=== PATIENT | female | born 1940 | race Two or more races ===

== ENCOUNTER 2024-12-01 09:25 | Inpatient (IN) | payer MEDICAID, OTHER ==
[~2024-12-01] VITALS: Ht 154.9 cm; Wt 57.8 kg
--- NOTE | 2024-12-01 10:18 | DVH ---
CHEST RADIOGRAPH Indication: left face numbness Technique: Single frontal view of the chest was obtained COMPARISON: None FINDINGS: No pneumothorax, pulmonary edema, or consolidative infiltrates. The heart is upper limits of normal in size. The aortic arch is calcific. 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 IMPRESSION: 1. No acute intrathoracic process.
--- NOTE | 2024-12-01 10:26 | DVH ---
EXAM: CT HEAD WITHOUT CONTRAST INDICATION: left face numbness TECHNIQUE: CT of the head without intravenous contrast. Radiation Dose : 1. Head: CT Dose: CTDI volume is 50.52 mGy. Dose-length product is 810.09 mGy*cm The dose indicators for CT are the volume Computed Tomography (CT) Dose Index (CTDIvol) and the Dose Length Product (DLP), and are measured in units of mGy and mGy-cm, respectively. These indicators are not patient dose, but values generated from the CT scanner acquisition factors. The report includes radiation exposure data for exposures received during this examination. COMPARISON: None FINDINGS: No intracranial hemorrhage, mass, midline shift, hydrocephalus, or evidence of acute large vessel inf arct. There is mild global brain atrophy. There is moderate to severe decreased attenuation in the periventricular and by cerebral white matter. The mastoid air cells and middle ear spaces are clear. There is a mucous retention cyst in the right ethmoid sinus. There are postoperative changes of amalia ateral cataract extraction surgery. No cranial fracture or scalp edema. IMPRESSION: Global brain atrophy and chronic ischemic changes without evidence of acute intracranial process. Radiation optimization: All CT scans at this facility use at least one of these dose optimization asa hniques: automated exposure control mA and/or kV adjustment per patient size (includes targeted exam s where dose is matched to clinical indication) or iterative reconstruction.
--- NOTE | 2024-12-01 10:35 | ED.PDOC ---
HPI (NEURO) HPI Comments 84-year-old female presents with a chief complaint of left-sided facial numbness x 2 days. Patient states that the left side of her face feels "asleep". Patient has no facial droop at this time. Patient denies any left-sided numbness in her extremities. Patient mentions that she has had facial numbness before in the past and it was due to a "trigeminal nerve problem". Patient is able to speak in full complete sentences. No other symptoms or modifying factors present at this time. Chief Complaint: Face pain Time Seen by MD: 09:34 Reviewed Notes: Medications, Allergies Information Source: Patient Mode of Arrival: Ambulatory Severity: Moderate Dizziness/Weakness Severity: Does not affect activitie Timing: Days Duration: Since onset Prehospital treatment: None Numbness Location: (L) Sided, Facial Onset: At rest Circumstances: Spontaneous Past Medical History PAST MEDICAL HISTORY: Denies Surgical History: Denies all surgeries TATTOO ARTIST History: Denies all TATTOO ARTIST Hx Family History Family History: Reviewed,noncontributory to illness Social History Smoker: Non-Smoker Alcohol: Denies ETOH Use Drugs: Denies Drug Use Lives In: Home Constitutional: denies: chills, diaphoresis, fatigue, fever, malaise, sweats, weakness, others EENTM: denies: blurred vision, double vision, ear bleeding, ear discharge, ear drainage, ear pain, ear ringing, eye pain, eye redness, hearing loss, mouth pain, mouth swelling, nasal discharge, nose bleeding, nose congestion, nose pain, photophobia, tearing, throat pain, throat swelling, voice changes, others Respiratory: denies: cough, hemoptysis, orthopnea, SOB at rest, shortness of breath, SOB with excertion, stridor, wheezing, others Cardiovascular: denies: chest pain, dizzy spells, diaphoresis, Dyspnea on exertion, edema, irregular heart beat, left arm pain, lightheadedness, palpitations, PND, syncope, others Gastrointestinal: denies: abdomen distended, abdominal pain, blood streaked bowels, constipated, diarrhea, dysphagia, difficulty swallowing, hematemesis, melena, nausea, poor appetite, poor fluid intake, rectal bleeding, rectal pain, vomiting, others Genitourinary: denies: abnormal vagina bleeding, burning, dyspareunia, dysuria, flank pain, frequency, hematuria, incontinence, pain, , vagina disc harge, urgency, others Neurological: reports: left sided numbness (FACIAL); denies: dizziness, fainting, headache, left sided weakness, numbness, paresthesia, pre-existing deficit, right sided numbness, right sided weakness, seizure, speech problems, tingling, tremors, weakness, others Musculoskeletal: denies: back pain, gout, joint pain, joint swelling, muscle pain, muscle stiffness, neck pain, others Integumetry: denies: bruises, change in color, change in hair/nails, dryness, laceration, lesions, lumps, rash, wounds, others Allergic/Immunocompromised: denies: Difficulty Healing, Frequent Infections, Hives, Itching, others Hematologic/Lymphatic: denies: anemia, blood clots, easy bleeding, easy bruising, swollen glands, others Endocrine: denies: excessive hunger, excessive sweating, excessive thirst, excessive urination, flushing, intolerance to cold, intolerance to heat, unexplained weight gain, unexplained weight loss, others Psychiatric: denies: anxiety, bipolar disorder, depression, hopeless, panic disorder, schizophrenia, sleepless, suicidal, others All Other Systems: Reviewed and Negative Physical Exam General Appearance: No Apparent Distress, Normal HEENT: Normal ENT Inspection, Pharynx Normal, TMs Normal Neck: Full Range of Motion, Non-Tender, Normal, Normal Inspection Respiratory: Chest Non-Tender, Lungs Clear, No Accessory Muscle Use, No Respiratory Distress, Normal Breath Sounds Cardiovascular: No Edema, No JVD, No Murmur, No Gallop, Normal Peripheral Pulses, Regular Rate/Rhythm Breast Exam: Deferred Gastrointestinal: No Organomegaly, Non Tender, No Pulsatile Mass, Normal Bowel Sounds, Soft Genitalia: Deferred Pelvic: Deferred Rectal: Deferred Extremities: No calf tenderness, Normal capillary refill, Normal inspection, Normal range of motion, Non-tender, No pedal edema Musculoskeletal : Apperance: Normal Neurologic: Alert, marketing sales manager II-XII nml as Tested, No Motor Deficits, Normal Affect, Normal Mood, R/L Numbness (LEFT SIDED FACIAL NUMBNESS) Cerebellar Function: Normal Reflexes: Normal Skin: Dry, Normal Color, Warm Lymphatic: No Adenopathy Was a procedure done? Was a procedure done?: No Differential Diagnosis (SZ) Seizure: Hyperventilation, CVA/TIA, Hypocalcemia, Hypoglycemia, Mass Lesion, Other (bells palsy) X-Ray, Labs, Meds, VS Vital Signs Date Time Temp Pulse Resp B/P (MAP) Pulse Ox O2 Delivery O2 Flow Rate FiO2 12/01/24 09:41 98.2 68 17 149/75 (99) 99 Lab Test 12/01/24 11:25 12/01/24 10:22 12/01/24 09:34 Range/Units Troponin I High Sensitivity 3 L 4 </=34 ng/L White Blood Count 3.3 L 4.4-10.8 10^3/uL Red Blood Count 4.51 4.0-5.20 10^6/uL Hemoglobin 14.2 12.2-16.2 g/dL Hematocrit 42.2 36.0-46.0 % Mean Corpuscular Volume 93.4 80.0-100.0 fL Mean Corpuscular Hemoglobin 31.4 28.0-32.0 pg Mean Corpuscular Hemoglobin Concent 33.6 32.0-36.0 g/dL Red Cell Distribution Width 13.3 11.8-14.3 % Platelet Count 332 140-450 10^3/uL Mean Platelet Volume 6.5 L 6.9-10.8 fL Neutrophils (%) (Auto) 61.1 37.0-80.0 % Lymphocytes (%) (Auto) 28.5 10.0-50.0 % Monocytes (%) (Auto) 8.1 0.0-12.0 % Eosinophils (%) (Auto) 1.7 0.0-7.0 % Basophils (%) (Auto) 0.6 0.0-2.0 % Neutrophils # (Auto) 2.0 1.6-8.6 10 ^3/uL Lymphocytes # (Auto) 0.9 0.4-5.4 10 ^3/uL Monocytes # (Auto) 0.3 0-1.3 10 ^3/uL Eosinophils # (Auto) 0.1 0-0.8 10 ^3/uL Basophils # (Auto) 0 0-0.2 10 ^3/uL Nucleated Red Blood Cells 0.0 % Sodium Level 138 136-145 mmol/L Potassium Level 4.2 3.5-5.1 mmol/L Chloride Level 102 98-107 mmol/L Carbon Dioxide Level 31 20-31 mmol/L Anion Gap 5 5-15 Blood Urea Nitrogen 12 9-23 mg/dL Creatinine 0.60 0.550-1.02 mg/dL Glomerular Filtration Rate Calc 90 >90 mL/min BUN/Creatinine Ratio 20.0 10.0-20.0 Serum Glucose 92 74-106 mg/dL Calcium Level 10.1 8.7-10.4 mg/dL POC Glucose 96 70-106 mg/dl Time of 1ST Reevaluation: 10:04 Reevaluation 1ST: Unchanged Patient Education/Counseling: Diagnosis, Treatment, Prognosis, Need For Follow Up Family Education/Counseling: Diagnosis, Treatment, Prognosis, Need For Follow Up, No Family Present Comments I reviewed the following notes from patient's past medical encounters: The following tests were ordered, and results were reviewed by me: (Labs, XY, EKG) Additional Information was gathered from interviewing the following independent historians: (Family, Other Providers, EMT) I reviewed and agreed with the following test results read by other providers: (X-Ray, CT, US) I discussed treatment and results with medical personnel and: (Consultants, Family) Additional Information pt continues to have left facial numbness. head head ct is unremarkable. she does not have facial asymmetry, but the continuation of numbness is unresolved. she does not have a doctor to follow up with . she will be admitted for further workup for stroke symptom Departure 1 Departure Time of Disposition: 13:48 Impression: Primary Impression: Facial numbness Additional Impression: Stroke-like symptom Disposition: ADMITTED INPATIENT Admit to: Tele Condition: Stable Discharged With: Self, Relative Critical Care Note Critical Care Time?: Yes (55 min-critical care time only) Critical care comment: Due to concerns for patients condition deteriorating, the care required my highest level of attention and readiness to intervene. I assessed the patient, reviewed the medical records, ordered the appropriate tests and treatments, then reassessed for results and responsiveness. I communicated with medical personnel and consultants and formulated a plan of care. Total critical care time excludes any procedures Stability Stability form required: No Heart Score Heart Score: Heart Score Response (Comments) Value History N/A 0 EKG N/A 0 Age N/A 0 Risk Factors N/A 0 Troponin N/A 0 Total 0 I personally scribed for BETY BANDA MD ([email or web address]) on 12/01/24 at 10:35. Electronically submitted by Julio Cesar Traylor ([email or web address]). BETY BANDA MD Dec 01, 2024 10:35
[2024-12-01 10:45] LABS: Basophils # (auto) 0 10 ^3/uL (0-0.2); Basophils % (auto) 0.6 % (0.0-2.0); Eosinophils # (auto) 0.1 10 ^3/uL (0-0.8); Eosinophils % (auto) 1.7 % (0.0-7.0); Hematocrit 42.2 % (36.0-46.0); Hemoglobin 14.2 g/dL (12.2-16.2); Lymphocytes # (auto) 0.9 10 ^3/uL (0.4-5.4); Lymphocytes % (auto) 28.5 % (10.0-50.0); Mean Corpuscular Hemoglobin 31.4 pg (28.0-32.0); Mean Corpuscular Hgb Conc. 33.6 g/dL (32.0-36.0); Mean Corpuscular Volume 93.4 fL (80.0-100.0); Monocytes # (auto) 0.3 10 ^3/uL (0-1.3); Monocytes % (auto) 8.1 % (0.0-12.0); Neutrophils % (auto) 61.1 % (37.0-80.0); Platelet Count (auto) 332 10^3/uL (140-450); Red Blood Cells 4.51 10^6/uL (4.0-5.20); Red Cell Distribution Width 13.3 % (11.8-14.3); White Blood Cell 3.3 10^3/uL (4.4-10.8)
[2024-12-01 11:00] LABS: Chloride 102 mmol/L (98-107); Potassium 4.2 mmol/L (3.5-5.1); Sodium 138 mmol/L (136-145)
[2024-12-01 11:01] LABS: Anion Gap 5 (5-15); Carbon Dioxide 31 mmol/L (20-31)
[2024-12-01 11:02] LABS: Calcium 10.1 mg/dL (8.7-10.4)
[2024-12-01 11:06] LABS: Glucose 92 mg/dL (74-106)
[2024-12-01 11:07] LABS: Blood Urea Nitrogen 12 mg/dL (9-23)
[2024-12-01] MEDS: ASPirin 325 MG TAB PO ONE (14:28)
[2024-12-01 16:19] VITALS: PULSE 62; RESP 16; O2SAT 97
[2024-12-01] MEDS ORDERED: ONDANSETRON HCL 4 MG/2 ML VIAL IV PRN (18:45)
[2024-12-01 20:05] VITALS: BP 165/82; PULSE 64; PULSE 65; RESP 16; TEMP 97.5; O2SAT 99
[2024-12-01 20:13] VITALS: BP 165/82; PULSE 65; RESP 16; TEMP 97.5; O2SAT 99
[2024-12-01] MEDS ORDERED: CARB200T4 PO (21:16)
[2024-12-01] MEDS ORDERED: AMLO-412 PO (21:17)
[2024-12-01] MEDS ORDERED: TIMO0.5S28 EACHEYE (21:19)
[2024-12-01] MEDS: ATORVASTATIN 20 MG TAB PO SCH (21:35)
[2024-12-01 21:38] VITALS: BP 152/65; PULSE 62
[2024-12-01 22:20] VITALS: BP 106/55; PULSE 64; RESP 17; TEMP 97.9; O2SAT 94
[2024-12-02 01:00] VITALS: BP 140/66; PULSE 64; RESP 18; TEMP 97.7; O2SAT 95
--- NOTE | 2024-12-02 03:32 | DVHHP2 ---
History of Present Illness Reason for Visit: Facial numbness History of Present Illness 84-year-old female presents for evaluation of facial numbness. Patient endorses a two day history of having constant left facial numbness. Denies upper or lower extremity numbness, weakness or slurred speech. Denies headache or blurred vision. No other acute complaints reported. Past Medical History Hypertension Past Surgical History Denies Family History Noncontributory Smoke: No ALCOHOL: none Drugs: None Lives: with Family Review of Systems Review of Systems Review of systems are currently negative otherwise addressed in HPI. Allergies: Coded Allergies: NO KNOWN ALLERGIES (Unverified , 12/01/24) Medications Current Medications Medications Dose Ordered Sig/Fatou Route Start Time Stop Time Status Last Admin Dose Admin Aspirin 81 mg DAILY PO 12/02/24 10:00 Atorvastatin Calcium 10 mg HS PO 12/01/24 22:00 12/01/24 21:35 10 MG Ondansetron HCl 4 mg Q4HP PRN IV 12/01/24 18:45 Enoxaparin Sodium 40 mg DAILY SC 12/02/24 10:00 Acetaminophen 650 mg Q6HP PRN PO 12/01/24 18:45 Exam Vital Signs Vital Signs Date Time Temp Pulse Resp B/P (MAP) Pulse Ox O2 Delivery O2 Flow Rate FiO2 12/02/24 01:00 97.7 64 18 140/66 (90) 95 97.7 12/01/24 22:14 Room Air* 0 21 Exam Gen: Skin: Warm, dry, normal color and texture, no rash. HEENT: Normocephalic atraumatic, mucous membranes moist and pink. Neck: Cervical and supraclavicular nodes normal without enlargement, trachea is midline, thyroid gland is normal without masses. Pulmonary: Clear to auscultation and percussion bilaterally. Cardiac: Regular rate and rhythm. No murmur Abdomen: Soft, nontender, nondistended, bowel sounds present all 4 quadrants, no guarding, no rigidity, no organomegaly. Extremities: No cyanosis, clubbing, no edema Neuro: Left facial numbness Labs/Xrays ORDERING PHYSICIAN: BETY BANDA MD PROCEDURE(s): CXRP - CHEST PORTABLE REASON: left face numbness ORDER NUMBER(s): [id number], ACCESSION NUMBER(s): [id number] CHEST RADIOGRAPH Indication: left face numbness Technique: Single frontal view of the chest was obtained COMPARISON: None FINDINGS: No pneumothorax, pulmonary edema, or consolidative infiltrates. The heart is upper limits of normal in size. The aortic arch is calcific. 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 IMPRESSION: 1. No acute intrathoracic process. PATIENT: JUVENAL WHITE ACCT: [id number] UNIT: [id number] : 1940 LOC: ER ROOM / BED: / AGE / SEX: 84 / F ADM STATUS: REG ER SERVICE 1001 ORDERING PHYSICIAN: BETY BANDA MD PROCEDURE(s): HWOCT - HEAD WITHOUT CONTRAST REASON: left face numbness ORDER NUMBER(s): [id number], ACCESSION NUMBER(s): [id number] EXAM: CT HEAD WITHOUT CONTRAST INDICATION: left face numbness TECHNIQUE: CT of the head without intravenous contrast. Radiation Dose : 1. Head: CT Dose: CTDI volume is 50.52 mGy. Dose-length product is 810.09 mGy*cm The dose indicators for CT are the volume Computed Tomography (CT) Dose Index (CTDIvol) and the Dose Length Product (DLP), and are measured in units of mGy and mGy-cm, respectively. These indicators are not patient dose, but values generated from the CT scanner acquisition factors. The report includes radiation exposure data for exposures received during this examination. COMPARISON: None FINDINGS: No intracranial hemorrhage, mass, midline shift, hydrocephalus, or evidence of acute large vessel infarct. There is mild global brain atrophy. There is moderate to severe decreased attenuation in the periventricular and by cerebral white matter. The mastoid air cells and middle ear spaces are clear. There is a mucous retention cyst in the right ethmoid sinus. There are postoperative changes of bilateral cataract extraction surgery. No cranial fracture or scalp edema. IMPRESSION: Global brain atrophy and chronic ischemic changes without evidence of acute intracranial process. Radiation optimization: All CT scans at this facility use at least one of these dose optimization techniques: automated exposure control mA and/or kV adjustment per patient size (includes targeted exams where dose is matched to clinical indication) or iterative reconstruction. Labs Test 12/01/24 11:25 12/01/24 10:22 12/01/24 09:34 Range/Units Troponin I High Sensitivity 3 L </=34 ng/L White Blood Count 3.3 L 4.4-10.8 10^3/uL Red Blood Count 4.51 4.0-5.20 10^6/uL Hemoglobin 14.2 12.2-16.2 g/dL Hematocrit 42.2 36.0-46.0 % Mean Corpuscular Volume 93.4 80.0-100.0 fL Mean Corpuscular Hemoglobin 31.4 28.0-32.0 pg Mean Corpuscular Hemoglobin Concent 33.6 32.0-36.0 g/dL Red Cell Distribution Width 13.3 11.8-14.3 % Platelet Count 332 140-450 10^3/uL Mean Platelet Volume 6.5 L 6.9-10.8 fL Neutrophils (%) (Auto) 61.1 37.0-80.0 % Lymphocytes (%) (Auto) 28.5 10.0-50.0 % Monocytes (%) (Auto) 8.1 0.0-12.0 % Eosinophils (%) (Auto) 1.7 0.0-7.0 % Basophils (%) (Auto) 0.6 0.0-2.0 % Neutrophils # (Auto) 2.0 1.6-8.6 10 ^3/uL Lymphocytes # (Auto) 0.9 0.4-5.4 10 ^3/uL Monocytes # (Auto) 0.3 0-1.3 10 ^3/uL Eosinophils # (Auto) 0.1 0-0.8 10 ^3/uL Basophils # (Auto) 0 0-0.2 10 ^3/uL Nucleated Red Blood Cells 0.0 % Sodium Level 138 136-145 mmol/L Potassium Level 4.2 3.5-5.1 mmol/L Chloride Level 102 98-107 mmol/L Carbon Dioxide Level 31 20-31 mmol/L Anion Gap 5 5-15 Blood Urea Nitrogen 12 9-23 mg/dL Creatinine 0.60 0.550-1.02 mg/dL Glomerular Filtration Rate Calc 90 >90 mL/min BUN/Creatinine Ratio 20.0 10.0-20.0 Serum Glucose 92 74-106 mg/dL Calcium Level 10.1 8.7-10.4 mg/dL POC Glucose 96 70-106 mg/dl Assessment/Plan Assessment/Plan Assessment Rule out CVA Left facial numbness Hypertension Plan Admit the patient to [facility] surge to the hospitalist MRI of the brain pending Resume home medications Continue treatment per orders. Plan discussed with: Patient My Orders Orders - FRANCIS SWAN Procedure Category Date Status Time Aspirin Tablet PHA 12/02/24 In Process 10:00 Atorvastatin (Lipitor) PHA 12/01/24 In Process 22:00 Basic Metabolic Panel LAB 12/02/24 Logged 04:00 Admit ADMIT 12/01/24 Transmitted 18:37 Ondansetron Hcl PHA 12/01/24 In Process (Zofran) 18:45 Enoxaparin Sodium PHA 12/02/24 In Process (Lovenox) 10:00 Cardiac DIET 12/02/24 Transmitted Diet-2gna,Lofat,Lochol Breakfast Condition: Stable [place] 12/01/24 In Process 18:37 Acetaminophen Tablet PHA 12/01/24 In Process (Tylenol Tablet) 18:45 Bedrest With Bathroom [place] 12/01/24 In Process Privileg 18:37 Carbamazepine Tablet PHA 12/02/24 Transmitted (Tegretol Tablet) 10:00 Amlodipine Tablet PHA 12/02/24 Transmitted (Norvasc Tablet) 10:00 Date of Service: Dec 01, 2024 Billing Provider: FRANCIS SWAN Common Visit Codes: 90031-[id number] INP/OBS CARE (MOD) FRANCIS SWAN Dec 02, 2024 03:32
[2024-12-02] MEDS: ACETAMINOPHEN 325 MG TAB PO PRN (04:48)
[2024-12-02 05:13] VITALS: BP 144/63; PULSE 65; RESP 17; TEMP 97.8; O2SAT 94
[2024-12-02 07:11] LABS: Chloride 101 mmol/L (98-107); Sodium 137 mmol/L (136-145)
[2024-12-02 07:12] LABS: Anion Gap 8 (5-15); Calcium 9.6 mg/dL (8.7-10.4); Carbon Dioxide 28 mmol/L (20-31)
[2024-12-02 07:17] LABS: Glucose 87 mg/dL (74-106)
[2024-12-02 07:18] LABS: BUN/Creatinine Ratio 21.1 (10.0-20.0); Blood Urea Nitrogen 12 mg/dL (9-23); Potassium 3.3 mmol/L (3.5-5.1)
[2024-12-02 08:00] VITALS: PULSE 79; RESP 98; O2SAT 98
[2024-12-02 09:00] VITALS: BP 136/69; PULSE 62; RESP 18; TEMP 97.8; O2SAT 98
--- NOTE | 2024-12-02 09:35 | DVH ---
EXAMINATION: MRI BRAIN HEAD WO CONTRAST INDICATION: Left facial numbness COMPARISON: CT scan of the head dated 11/1924 TECHNIQUE: Multiplanar, multisequence magnetic resonance imaging of the brain was performed without the use of i ntravenous contrast. FINDINGS: No evidence of acute infarct. No intracranial hemorrhage. No mass effect. There is moderate periventricular/deep white matter T2/FLAIR hyperintensity is nonspecific, but most commonly associated with chronic microvascular disease. The ventricles and sulci are normal in size for age. Clear basal cisterns. Flow voids in the major intracranial vessels are maintained. No abnormality of the orbits. Paranasal sinuses and mastoid air cells are clear. No abnormality of the visualized osseous structures and extracranial soft tissues. IMPRESSION: 1. No acute infarct, intracranial hemorrhage, mass effect, or hydrocephalus. 2. Moderate subcortical and periventricular T2/FLAIR hyperintensities, nonspecific but most likely re lated to sequelae of chronic microvascular ischemic changes.
[2024-12-02] MEDS: carBAMazepine 200 MG TAB PO SCH (10:27)
[2024-12-02] MEDS: amLODIPine BESYLATE 5 MG TAB PO SCH (10:27)
[2024-12-02] MEDS: ASPirin 81 mg TAB PO SCH (10:27)
[2024-12-02] MEDS: ENOXAPARIN SOD 40 MG/0.4 ML SYRINGE SC SCH (10:28)
--- NOTE | 2024-12-02 11:29 | DVHDS2 ---
Discharge Summary Date of Admission Dec 01, 2024 at 18:37 Date of Discharge: Dec 02, 2024 Labs/Diagnostic Data: Laboratory Results Test 12/02/24 06:08 12/01/24 11:25 12/01/24 10:22 12/01/24 09:34 Sodium Level 137 mmol/L (136-145) Potassium Level 3.3 mmol/L (3.5-5.1) Chloride Level 101 mmol/L (98-107) Carbon Dioxide Level 28 mmol/L (20-31) Anion Gap 8 (5-15) Blood Urea Nitrogen 12 mg/dL (9-23) Creatinine 0.57 mg/dL (0.550-1.02) Glomerular Filtration Rate Calc 91 mL/min (>90) BUN/Creatinine Ratio 21.1 (10.0-20.0) Serum Glucose 87 mg/dL (74-106) Calcium Level 9.6 mg/dL (8.7-10.4) Troponin I High Sensitivity 3 ng/L (</=34) White Blood Count 3.3 10^3/uL (4.4-10.8) Red Blood Count 4.51 10^6/uL (4.0-5.20) Hemoglobin 14.2 g/dL (12.2-16.2) Hematocrit 42.2 % (36.0-46.0) Mean Corpuscular Volume 93.4 fL (80.0-100.0) Mean Corpuscular Hemoglobin 31.4 pg (28.0-32.0) Mean Corpuscular Hemoglobin Concent 33.6 g/dL (32.0-36.0) Red Cell Distribution Width 13.3 % (11.8-14.3) Platelet Count 332 10^3/uL (140-450) Mean Platelet Volume 6.5 fL (6.9-10.8) Neutrophils (%) (Auto) 61.1 % (37.0-80.0) Lymphocytes (%) (Auto) 28.5 % (10.0-50.0) Monocytes (%) (Auto) 8.1 % (0.0-12.0) Eosinophils (%) (Auto) 1.7 % (0.0-7.0) Basophils (%) (Auto) 0.6 % (0.0-2.0) Neutrophils # (Auto) 2.0 10 ^3/uL (1.6-8.6) Lymphocytes # (Auto) 0.9 10 ^3/uL (0.4-5.4) Monocytes # (Auto) 0.3 10 ^3/uL (0-1.3) Eosinophils # (Auto) 0.1 10 ^3/uL (0-0.8) Basophils # (Auto) 0 10 ^3/uL (0-0.2) Nucleated Red Blood Cells 0.0 % POC Glucose 96 mg/dl (70-106) Other Laboratory Tests 12/02/24 06:08 12/01/24 10:22 Brief Hx & Hospital Course: Final diagnoses: Trigeminal neuralgia Hypertension CVA was ruled out Hypokalemia 84-year-old female who was admitted for numbness in her face She has trigeminal neuralgia but she said she dropped her carbamazepine dose from 4-200 mg lately She came with left facial numbness for 4 days Workup here with a CT scan of the head and MRI were negative for stroke The patient is doing well now She can be discharged home Continue carbamazepine but increase the dose to twice a day Follow up with primary care physician in as soon as possible Condition at Discharge: Stable Final Diagnosis/Problems List Trigeminal neuralgia CVA was ruled out Hypertension Discharge Disposition: Home SNF Discharge Will this Physician continue t: No Discharge Instruct/Medications Diet: Cardiac 2g Na,low cholest Activity: No Restrictions, As Tolerated Follow Up/Referral: PCP as soon as possible Medications: Increase carbamazepine to 200 mg twice a day Discharge Statement: "Patient was advised to return to the ER or call 911 if any headaches, dizziness, shortness of breath, chest pain, abdominal pain, bleeding, fevers, or worsening of medical condition. Patient was counseled about treatment plan, medications, possible side effects, patientverbalized understanding. All questions were answered to the best of my ability. This discharge took greater then 30 minutes in planning, reviewing documentation, counseling the patient, and discussing with other team members." ASSESSMENT ASSESSMENT Assessment Trigeminal neuralgia CVA was ruled out Hypertension Date of Service: Dec 02, 2024 Billing Provider: BLAKE LOPEZ MD Common Visit Codes: 00534-VSK/OBS DISCH DAY >30min BLAKE LOPEZ MD Dec 02, 2024 11:29
[2024-12-02] MEDS: POTASSIUM CHL 20 Meq TABLET PO ONE (11:30)
[2024-12-02 13:00] VITALS: BP 112/67; PULSE 74; RESP 18; TEMP 97.6; O2SAT 100
[2024-12-02 14:32] VITALS: BP 136/72; PULSE 78; RESP 20; TEMP 97.9; O2SAT 97
[2024-12-02] MEDS ORDERED: CARB200T4 PO (14:56)
== END 2024-12-02 15:12 | disposition home or self-care (01) | DRG 48 ==
LOC: ER 09:25 → OVERFLOW 18:37 → CENTRAL 22:14
PROVIDERS: ADMIT Nurse Practitioner; ATTEND Internal Medicine Geriatric Medicine
DX: G50.0 Trigeminal neuralgia (principal); E87.6 Hypokalemia; I10 Essential (primary) hypertension; Z79.899 Other long term (current) drug therapy
CPT/HCPCS: 36415; 70450; 70551; 71045; 80048; 82962; 84484; 85025; 99291; G0378